=== PATIENT | female | born 1980 | race African-American/Black ===

== ENCOUNTER 2019-05-27 22:25 | Emergency (ER) | payer MEDICAID ==
--- NOTE | 2019-05-27 22:45 | NUR ---
Patient comes into ER from an [place] [facility] facility. Brought in by [facility], received report and assumed patient care. Patient reports feeling a sharp pain. Patient reporting pain as substernal chest pain, but patient's pain increases with palpation around thoracic spine between shoulder blades, and is unable to lay flat or raise her own arms. Patient describes her pain as 10/10 in the chest. Patient attached to electrocardiac sensors, blood pressure and pulsatile oxygen sensors. All vitals within normal limits, no cardiac ectop, no ST level changes. Patient nods off when medical providers or staff aren't keeping patient awake and pulsatile oxygen desaturates into 80's. Placed on supplemental oxygen via nasal cannula. When patient aroused and awake saturates at 100% on room air. Patient assessed by provider. Orders placed for labs and imaging. Head Esthetician at bedside now. Awaiting results.
--- NOTE | 2019-05-27 23:03 | NUR ---
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
[2019-05-27 23:12] LABS: ALANINE AMINOTRANSFERASE 26 U/L (12-78); ALBUMIN 3.8 g/dL (3.4-5.0); ANION GAP 7 mmol/L (5-15); CALCIUM 8.6 mg/dL (8.5-10.1); CHLORIDE 108 mmol/L (98-107); CREATININE 0.83 mg/dL (0.55-1.02)
[2019-05-27 23:13] LABS: BASOPHILS # (AUTO) 0.06 x10^3/uL (0-0.1); BASOPHILS % (AUTO) 1 % (0-1); EOSINOPHILS % (AUTO) 1 % (1-7); LYMPHOCYTES # (AUTO) 2.56 x10^3/uL (1-3.4); LYMPHOCYTES % (AUTO) 34 % (22-44); MD NO; MEAN CORPUSCULAR HEMOGLOBIN 27.6 pg (27.0-34.8); MEAN CORPUSCULAR VOLUME 86.5 fL (80-100); MONOCYTES # (AUTO) 0.52 x10^3/uL (0.2-0.8); MONOCYTES % (AUTO) 7 % (2-9); NEUTROPHILS # (AUTO) 4.37 x10^3/uL (1.8-6.8); NEUTROPHILS % (AUTO) 58 % (42-75); PLATELET COUNT 286 x10^3/uL (130-400); RED BLOOD COUNT 4.16 x10^6/uL (3.82-5.3); RED CELL DISTRIBUTION WIDTH 15.6 % (9.6-15.2)
[2019-05-27 23:17] LABS: ALKALINE PHOSPHATASE 67 U/L (45-117); BILIRUBIN,TOTAL 0.6 mg/dL (0.2-1.0); TOTAL PROTEIN 7.5 g/dL (6.4-8.2); TROPONIN I < 0.015 ng/mL (0.000-0.045)
--- NOTE | 2019-05-28 00:26 | NUR ---
RN at bedside, updated vitals, VSS. welding technician to bedside, confirmed iv in place. Patient out of room, transported by ballistic technician. Awaiting results-
--- NOTE | 2019-05-28 00:42 | NUR ---
pt came to CT with 18g in left AC that would not flush. cardiology technician put a 20g in right AC for CT scan and sent pt back to ER with iv.
[2019-05-28] MEDS ORDERED: OMNIPAQUE 350 MG/ML, 100ML BOTTLE ONE (00:49)
[2019-05-28 00:55] VITALS: BP 140/88
--- NOTE | 2019-05-28 00:59 | NUR ---
Received update from lead manufacturing technician new IV started. Patient returned to room, lights off and resting comfortably. Awaiting computed tomography results.
--- NOTE | 2019-05-28 01:45 | NUR ---
TASK RN: PT RESTING COMFORTABLTY IN [facility], RESPIRATIONS EVEN/UNLABORED. SPO2 >90% ON RA. POC IS DC, IV X2 DC'D. PT OFF MONITORING AND ASKED TO DRESS SELF.
--- NOTE | 2019-05-28 02:03 | NUR ---
TASK RN: DC EDUCATION PROVIDED, PT DEMONSTRATES UNDERSTANDING. PT TO WHEELCHAIR AND WHEELED TO DC WITH RN. PT HAS TAXI VOUCHER FOR [facility] TRANSPORT HOME
== END 2019-05-28 02:16 | disposition home or self-care (01) ==
LOC: ED 05-28 01:10
DX: R07.89 Other chest pain (principal); F17.200 Nicotine dependence, unspecified, uncomplicated
CPT/HCPCS: 36415; 71045; 71275; 80053; 84484; 84703; 85025; 85379; 93005; 99284; Q9967